=== PATIENT | female | born 1990 | race Caucasian/White ===

== ENCOUNTER 2020-12-03 05:40 | Inpatient (IN) | payer OTHER ==
[~2020-12-03 05:40] MED LIST: IRON325 M1 PO; OMNICEF 300 MG300 MG PO; PRENATAL VITAM1 EAC8 PO; SYNTHROID25 MCG PO
[2020-12-03 06:17] LABS: RED BLOOD COUNT 4.19 M/UL (4.00-5.10); WHITE BLOOD COUNT 9.2 K/UL (4.5-11.0)
[2020-12-03] MEDS ORDERED: IBUPROFEN600 MG PO (13:23)
[2020-12-03] MEDS ORDERED: DOCUSATE SODIU100 MG PO (13:23)
[2020-12-04 02:08] LABS: HEMOGLOBIN 10.5 gm/dl (12.3-15.3)
== END 2020-12-04 16:05 | disposition home or self-care (01) | DRG 806 ==
LOC: OB 05:40
PROVIDERS: ADMIT Obstetrics & Gynecology
PROC: 10E0XZZ Delivery of Products of Conception, External Approach (ICD-10-PCS; principal; 2020-12-03)
PROC: 10907ZC Drainage of Amniotic Fluid, Therapeutic from Products of Conception, Via Natural or Artificial Opening (ICD-10-PCS; 2020-12-03)
PROC: 3E033VJ Introduction of Other Hormone into Peripheral Vein, Percutaneous Approach (ICD-10-PCS; 2020-12-03)
DX: O99.284 Endocrine, nutritional and metabolic diseases complicating childbirth (principal); O98.42 Viral hepatitis complicating childbirth; Z37.0 Single live birth; E03.9 Hypothyroidism, unspecified; B19.20 Unspecified viral hepatitis C without hepatic coma; Z3A.39 39 weeks gestation of pregnancy; Z90.49 Acquired absence of other specified parts of digestive tract; O76 Abnormality in fetal heart rate and rhythm complicating labor and delivery; Z20.822 Contact with and (suspected) exposure to COVID-19
CPT/HCPCS: 36415; 51702; 80307; 81001; 82800; 85014; 85018; 85025; 90715; J2590; J7120